=== PATIENT | male | born 1970 | race Two or more races ===

== ENCOUNTER 2021-01-19 06:25 | Outpatient (CLI) | payer OTHER | END 2021-01-19 23:59 | disposition home or self-care (01) | LOC: LAB 06:25 | PROVIDERS: ATTEND Internal Medicine | DX: Z01.812 Encounter for preprocedural laboratory examination (principal); Z20.822 Contact with and (suspected) exposure to COVID-19 ==

== ENCOUNTER → 2021-01-20 | Outpatient (CLI) | payer OTHER ==
[2021-01-20 09:42] LABS: *BILIRUBIN,URIN NEGATIVE (NEGATIVE); *BLOOD, URINE NEGATIVE (NEGATIVE); *CLARITY,URINE CLEAR (CLEAR); *COLOR,URINE YELLOW (YELLOW); *KETONES,URINE NEGATIVE (NEGATIVE); *UROBILINOGEN,URINE 0.2 E.U./dl (NORMAL); LEUKOCYTE ESTERASE ,URINE NEGATIVE (NEGATIVE); NITRITE, URINE NEGATIVE (NEGATIVE); UGLUCOSE NEGATIVE (NEGATIVE)
[2021-01-20 09:53] LABS: HEMATOCRIT 44.7 % (36.7-47.1); MEAN CORPUSCULAR HEMOGLOBIN 30.6 uug (23.8-33.4); MEAN CORPUSCULAR VOLUME 87.4 fL (73.0-96.2); PLATELET COUNT (AUTO) 304 K/uL (152-348)
[2021-01-20 09:59] LABS: BILIRUBIN,TOTAL 0.4 mg/dL (0.2-1.0); CREATININE 0.8 mg/dL (0.6-1.3); POTASSIUM 4.2 mmol/L (3.5-5.1); TOTAL PROTEIN, SERUM 7.9 g/dL (6.4-8.2)
== END | disposition home or self-care (01) ==
LOC: LAB 09:16
PROVIDERS: ATTEND Internal Medicine
DX: Z09 Encounter for follow-up examination after completed treatment for conditions other than malignant neoplasm (principal); Z98.1 Arthrodesis status
CPT/HCPCS: 36415; 71045; 85025; 85610; 85730; 93005; 93307

== ENCOUNTER 2021-02-10 06:11 | Outpatient (CLI) | payer OTHER | END 2021-02-10 23:59 | disposition home or self-care (01) | LOC: LAB 06:11 | PROVIDERS: ATTEND Orthopaedic Surgery | DX: Z01.812 Encounter for preprocedural laboratory examination (principal); Z20.822 Contact with and (suspected) exposure to COVID-19 ==

== ENCOUNTER 2021-02-11 07:22 | Day surgery (SDC) | payer OTHER ==
[2021-02-11] MEDS ORDERED: ACETAMINOPHEN/CODEINE 300-30 MG TABLET PO ONE (07:23)
[2021-02-11] MEDS ORDERED: SEVOFLURANE 250 ML BOTTLE IH ONE (07:23)
[2021-02-11] MEDS ORDERED: LIDOCAINE-MPF 2% 5 ML VIAL IJ ONE (07:23)
[2021-02-11] MEDS ORDERED: ONDANSETRON 4 MG/2 ML VIAL IV ONE (07:23)
[2021-02-11] MEDS ORDERED: METOCLOPRAMIDE HCL 10 MG/2 ML VIAL IV ONE (07:23)
[2021-02-11] MEDS ORDERED: CEFAZOLIN 1 G VIAL IM ONE (07:23)
[2021-02-11] MEDS ORDERED: PROPOFOL 200 MG/20 ML BOTTLE IV ONE (07:23)
[2021-02-11 08:17] LABS: HEMATOCRIT 43.6 % (36.7-47.1); MEAN CORPUSCULAR VOLUME 89.3 fL (73.0-96.2); PLATELET COUNT (AUTO) 287 K/uL (152-348)
[2021-02-11 08:32] LABS: BILIRUBIN,TOTAL 0.2 mg/dL (0.2-1.0); CREATININE 0.7 mg/dL (0.6-1.3); POTASSIUM 4.3 mmol/L (3.5-5.1); TOTAL PROTEIN, SERUM 7.4 g/dL (6.4-8.2)
[2021-02-11] MEDS ORDERED: BUPIVACAINE PF 0.5% 30 ML VIAL ONE (08:49)
[2021-02-11] MEDS ORDERED: FENTANYL CITRATE 250 MCG/5 ML AMPUL ONE (08:56)
[2021-02-11] MEDS ORDERED: HYDROMORPHONE 2 MG/1 ML DISP.SYRIN ONE (08:56)
[2021-02-11] MEDS ORDERED: MIDAZOLAM HCL 2 MG/2 ML VIAL ONE (08:56)
[2021-02-11] MEDS ORDERED: CEFAZOLIN 1 G VIAL ONE (10:09)
[2021-02-11] MEDS ORDERED: SEVOFLURANE 250 ML BOTTLE ONE (10:16)
== END 2021-02-11 14:45 | disposition home or self-care (01) ==
LOC: DS 07:22
PROVIDERS: ATTEND Orthopaedic Surgery
DX: S63.22 Subluxation of unspecified interphalangeal joint of finger (principal); M19.90 Unspecified osteoarthritis, unspecified site; Z79.899 Other long term (current) drug therapy; Z98.890 Other specified postprocedural states; X58.XXXA Exposure to other specified factors, initial encounter; Y93.89 Activity, other specified; Y92.89 Other specified places as the place of occurrence of the external cause; Y99.8 Other external cause status
CPT/HCPCS: 26860; 36415; 80053; 85025; 85730; C1713; J0690 ×2; J1170 ×2; J2175; J2250; J2405; J2765; J3010; J3490 ×2; J7120; A4217; A4649